=== PATIENT | male | born 1950 | race Caucasian/White ===

== ENCOUNTER → 2018-06-19 | Outpatient (CLI) | payer OTHER, MEDICARE | LOC: FIMAGING 09:36 | PROVIDERS: ATTEND Orthopaedic Surgery | DX: M16.12 Unilateral primary osteoarthritis, left hip (principal) ==

== ENCOUNTER 2018-07-12 08:48 | Inpatient (IN) | payer OTHER, MEDICARE ==
[~2018-07-12 08:48] MED LIST: POVIDONE-IODINE 20 ML in SODIUM CL IRRIG SOLUTION 500 ML IRR ONE; ROPIVACAINE 0.2% 80 MG, EPINEPHrine 0.2 MG, KETOROLAC TROMETHAMINE 30 MG in SYRINGE 0 ML IU ONE; TRANEXAMIC ACID 1,000 MG in NS 100 ML IV ONE
[2018-07-12] MEDS ORDERED: FAMOTIDINE 20 MG TAB PO ONE (09:01)
[2018-07-12] MEDS ORDERED: ceFAZolin 2 GM/DEXTROSE 100 ML IV ONE (09:01)
[2018-07-12] MEDS ORDERED: DEXAMETHASONE 4 MG/ML VIAL IVP ONE (09:01)
[2018-07-12] MEDS ORDERED: ACETAMINOPHEN 325 MG TAB PO ONE (09:01)
[2018-07-12] MEDS ORDERED: LR 1,000 ML IV ONE (09:02)
--- NOTE | 2018-07-12 09:14 | PDHPUP ---
History & Physical Update H&P update statement: This history and physical update is based on an assessment of the patient which was completed after admission or registration (within 24 hours), but prior to the surgery/procedure. H&P update: H&P reviewed & patient examined, no change in patient's condition since H&P completed
[2018-07-12] MEDS ORDERED: MIDAZOLAM 2 MG/2 ML VIAL IVP ONE (10:06)
--- NOTE | 2018-07-12 10:06 | PDANEPAE ---
ANE History of Present Illness For left total hip ANE Past Medical History - Cardiovascular History Hx Hypertension: Yes Hx Arrhythmias: No Hx Chest Pain: No Hx Coronary Artery / Peripheral Vascular Disease: No Hx CHF / Valvular Disease: No Hx Palpitations: No - Pulmonary History Hx COPD: No Hx Asthma/Reactive Airway Disease: No Hx Recent Upper Respiratory Infection: No Hx Oxygen in Use at Home: No Hx Sleep Apnea: No Sleep Apnea Screening Result - Last Documented: Positive Pulmonary History Comment: RENATA triggers only - Neurologic History Hx Cerebrovascular Accident: No Hx Seizures: No Hx Dementia: No - Endocrine History Hx Diabetes: No - Renal History Hx Renal Disorders: No - Liver History Hx Hepatic Disorders: No - Neurological & Psychiatric Hx Hx Neurological and Psychiatric Disorders: Yes Neurological / Psychiatric History Comment: anxiety - Cancer History Hx Cancer: Yes 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 wears glasses. has bump on inside lower right jaw below back tooth - is using triamcinolone paste from dentist - Chronic Pain History Chronic Pain: Yes (left hip) - Surgical History Prior Surgeries: 4 hernia repairs. deviated septum repair. hammer toe surgery ANE Review of Systems Review of Systems: - Exercise capacity METS (RN): 4 METS ANE Patient History - Allergies Allergies/Adverse Reactions: No Known Allergies Allergy (Verified 06/29/18 11:44) - Home Medications Home medications: home medication list seen and reviewed Home Medications: Aspirin [Aspirin 81mg (*)] 81 mg PO DAILY 06/28/18 [Last Taken 07/04/18] Atorvastatin Calcium [Lipitor 40 mg (*)] 40 mg PO DAILY 06/28/18 [Last Taken ] Docusate Sodium [Colace 100 MG (*)] 100 mg PO DAILY 06/28/18 [Last Taken ] Escitalopram Oxalate [Lexapro] 10 mg PO DAILY 06/28/18 [Last Taken 07/11/18] Lisinopril [Zestril 40 mg (*)] 40 mg PO HS 06/28/18 [Last Taken 07/11/18] Meloxicam [Mobic 15 mg] 15 mg PO DAILY 06/28/18 [Last Taken 07/04/18] Multivitamins [Multivitamin (*)] 1 each PO DAILY 06/28/18 [Last Taken 07/04/18] [place]-3 Fatty Acids [Fish Oil 1000 mg (*)] 2,000 mg PO DAILY 06/28/18 [Last Taken 07/04/18] RX: Herbals/Supplements -Info Only 1 ea PO DAILY 06/28/18 [Last Taken 07/04/18] RX: Omeprazole 20 mg PO DAILY 06/28/18 [Last Taken 07/11/18] RX: Triamcinolone Acetonide 1 alba DT DAILY 06/28/18 [Last Taken 07/04/18] Zolpidem Tartrate [Ambien 5MG (*)] 10 mg PO HS 07/03/18 [Last Taken 07/11/18] - NPO status NPO Status: no food or drink >8 hours NPO Since - Liquids (Date): 07/12/18 NPO Since - Liquids (Time): 06:30 NPO Since - Solids (Date): 07/11/18 NPO Since - Solids (Time): 19:00 - Anes Hx Anes Hx: no prior problems (No prior RA) - Smoking Hx Smoking Status: Former smoker - Family Anes Hx Family Hx Anesthesia Complications: none ANE Labs/Vital Signs - Vital Signs Blood Pressure: 147/93 Heart Rate: 78 Respiratory Rate: 15 O2 Sat (%): 95 Height: 180.34 cm Weight: 90.718 kg ANE Physical Exam - Airway Neck exam: FROM Mallampati Score: Class 2 Mouth exam: normal dental/mouth exam - Pulmonary Pulmonary: no respiratory distress - Cardiovascular Cardiovascular: regular rate and rhythym - ASA Status ASA Status: II ANE Anesthesia Plan Anesthesia Plan: MAC, spinal
[2018-07-12] MEDS ORDERED: PROPOFOL/EMULSION 500 MG/50 ML BOTTLE IV ONE ×2 (10:16→11:56)
[2018-07-12] MEDS ORDERED: LIDOCAINE 2% 5 ML SDV ONE (10:17)
[2018-07-12] MEDS ORDERED: BUPIVACAINE/EPI 0.5% 30 ML SDV ONE (10:18)
[2018-07-12] MEDS ORDERED: BUPIVACAINE/DEXTROSE 7.5MG/ML 2 ML SPINAL AMP SP ONE (10:18)
[2018-07-12] MEDS ORDERED: HYDROmorphONE/DILAUDID 2 MG/ML INJ IVP PRN (12:52)
[2018-07-12] MEDS ORDERED: fentaNYL 100 MCG/2 ML INJ IVP PRN (12:52)
[2018-07-12] MEDS ORDERED: ONDANSETRON 4 MG/2 ML VIAL IVP PRN ×2 (12:52→13:26)
[2018-07-12] MEDS ORDERED: NALOXONE HCL 0.4 MG/ML INJ IVP PRN (12:52)
--- NOTE | 2018-07-12 13:17 | POSTANESTH ---
Post Anesthetic Evaluation Cardiovascular Status: Similar to Pre-Op Cond Respiratory Status: Similar to Pre-op Cond. Level of Consciousness/Mental Status: Alert and Oriented Pain Control: Adequate, Prn Tx Ordered Nausea/Vomiting Control: Adequate, Prn Tx Ordered Complications Possibly Related to Anesthesia: None Noted
[2018-07-12] MEDS ORDERED: TEMAZEPAM 15 MG CAP PO PRN (13:26)
[2018-07-12] MEDS ORDERED: PROMETHAZINE HCL 25 MG SUPPR PR PRN (13:26)
[2018-07-12] MEDS ORDERED: diphenhydrAMINE 25 MG CAP PO PRN (13:26)
[2018-07-12] MEDS ORDERED: DIPHENOXYLATE/ATROPINE LOMOTIL 1 TAB PO PRN (13:26)
[2018-07-12] MEDS ORDERED: ONDANSETRON DISINTEGRATING 4 MG TAB PO PRN (13:26)
[2018-07-12] MEDS ORDERED: PROMETHAZINE HCL 25 MG/ML INJ IVP PRN (13:26)
[2018-07-12] MEDS ORDERED: POLYETHYLENE GLYCOL 3350 17 GM PKT PO PRN (13:26)
[2018-07-12] MEDS ORDERED: MAGNESIUM HYDROXIDE 30 ML UDCUP PO PRN (13:26)
[2018-07-12] MEDS ORDERED: BISACODYL 10 MG SUPP PR PRN (13:26)
[2018-07-12] MEDS ORDERED: METOCLOPRAMIDE 10 MG/2 ML VIAL IVP PRN (13:26)
[2018-07-12] MEDS ORDERED: LACTULOSE 20 GM/30 ML UDCUP PO PRN (13:26)
[2018-07-12] MEDS ORDERED: CYCLOBENZAPRINE 10 MG TAB PO PRN (13:26)
--- NOTE | 2018-07-12 13:26 | POSTOPPROG ---
Post Op Note Date of Operation: 07/12/18 Surgeon: Selvin Pizano Metalsmith: BRIA Crawford Anesthesiologist: MD Renate Anesthesia: IV Sedation, Spinal Pre-op Diagnosis: L hip OA Post-op Diagnosis: Same Procedure: L anterior DELIA with VIVIAN Inf/Abcess present in the surg proc area at time of surgery?: No EBL: 100-500 (300) Drains: Hemovac
[2018-07-12] MEDS ORDERED: LR 1,000 ML IV SCH (13:30)
--- NOTE | 2018-07-12 14:33 | GOP ---
DATE OF OPERATION: 07/12/2018 SURGEON: Selvin Pizano MD [facility] [facility]: Zachary Crawford, JOSE ALBERTOA, LSA, kennel assistant was required for the procedure due to complexity of the case, and the patient's condition for positioning, prepping, draping, retraction, and closure. ANESTHESIA: Spinal and IV sedation. PREOPERATIVE DIAGNOSIS: Left hip osteoarthritis. POSTOPERATIVE DIAGNOSIS: Left hip osteoarthritis. PROCEDURE PERFORMED: Left anterior approach hip replacement with MAKOplasty robotic guidance fluoros copic supervision, greater than 1 hour. FINDINGS: SPECIMENS: One femoral head. ESTIMATED BLOOD LOSS: 300 cc. INDICATIONS: Patient has severe hip osteoarthritis that failed to improve with conservative measures and significantly affecting activities of daily living including walking. Patient elected to procee d with an anterior approach hip replacement using MAKOplasty robotic guidance. After extensive discu ssion of all possible approaches as well as risks, benefits, pros, cons, expected recovery and progno sis. Patient verbalized understanding the risks, benefits, procedure and signed the informed consent prior to the procedure. DESCRIPTION OF PROCEDURE: DRAINS: Hemovac x1. COMPLICATIONS: None. IMPLANTS: Trident 2 hemispherical acetabular shell, size 56 with a +0 polyethylene liner; Accolade 2 , size 6 stem, 127 degree offset; 36 mm +5 head. OPERATIVE PROCEDURE: The patient was seen in the holding area. Operative consent and extremity was signed. Patient was taken to the operating room. After smooth induction of spinal anesthesia and se dation, the patient was placed in the supine position on the stress fracture table. The hip and cont ralateral iliac crest were prepped and draped in usual sterile fashion. Operative site was confirmed by signature. Operative time-out performed. Allergies reviewed. Antibiotics and TSA were administ ered. Three pins were placed in the contralateral iliac crest and pelvic array was fixed. It was well visu alized by the robot. Desired incision for the anterior portion of the hip was infiltrated with 0.25% Marcaine with epinephrine. A skin incision was made, made with a 10 blade and carried through the s ubcutaneous tissue to identify the TFL fascia. This was incised in line with the incision and the TF L was retracted laterally. The lateral femoral circumflex vessels were coagulated with Aquamantys. The TFL fascia was incised. The vastus lateralis was clearly exposed. Pericapsular fat was excised tissue. A T-shaped capsulotomy was performed. The capsule was preserved for later closure. The fem oral checkpoint was fixed into the anterior greater trochanter of the femur. Express registration wa s completed. The femoral neck was cut and then performed based on pre-templating, calculations and i maging. The femoral head was excised with a corkscrew. The acetabulum was exposed in standard fashi on. The labrum and pulvinar soft tissue were excised sharply. The pelvic checkpoint was placed in A IIS. Acetabular registration was performed using the robot. Reaming was then performed using the ro bot to the desired size. Cup was impacted into place with robotic guidance system. Good fixation wa s achieved. The cup was irrigated and dried, and the liner was impacted into place achieving good lo cking within the cup. The femur was then exposed in standard fashion. The femur was broached to the desired size. Trial neck and head were attached, and the hip was relocated. The length and offset were confirmed using the robot. Position of all components was confirmed at this point, fluoroscopic ally. The foot was freed from the table and stability was confirmed at 45 degrees in maximal flexio n, 30 degrees of internal rotation. Posterior back table externally rotated 90 degrees, extended don e to the floor. Stability was confirmed anteriorly. The hip was then dislocated and the femoral trial components were removed. The stem was impacted in to place. The trunnion was cleaned and dried and the head was impacted down onto the trunnion. The wound was copiously irrigated including the cup with pulse lavage, and the hip was once again relocat ed. Cuff placement was confirmed with fluoroscopy. All checkpoints and the femoral array screw were removed. The pelvic array was also removed. The wound was copiously irrigated with sterile solutio n. Dilute Betadine solution was irrigated into the wound and allowed to soak for 3 minutes before be ing irrigated out. Joint cocktail was injected into the soft tissue. Capsule was repaired with #1 Vi cryl sutures. The direct head of the rectus femoris was also repaired with #1 Vicryl sutures. A kori in was placed exiting distally and laterally from the TFL. The wound was then closed in layers with 0 Quill in a TFL fashion. Deep subcutaneous fat, 3-0 Versalok in the dermis. The wound was then remy ssed with sterile dressing and the patient was safely awakened, taken to recovery room in stable cond ition. All critical portions of procedure performed by myself, Dr. Pizano. This operative note was cr eated by myself, and was immediately available for emergency cross-coverage at all times. /[id number]/MODL
--- NOTE | 2018-07-12 16:58 | PDMN ---
Medical Necessity Medical necessity: [facility] IP only surgery; cpt 87537 L DELIA
[2018-07-12] MEDS: ceFAZolin 2 GM/DEXTROSE 100 ML IV SCH (17:32)
[2018-07-12] MEDS: ACETAMINOPHEN 325 MG TAB PO SCH ×2 (17:32→23:00)
[2018-07-12] MEDS: ASPIRIN 81 MG CHEWABLE TAB PO SCH (19:57)
[2018-07-12] MEDS: FAMOTIDINE 20 MG TAB PO SCH (19:57)
[2018-07-12] MEDS: SENNOSIDES/DOCUSATE SODIUM TAB PO SCH (19:57)
[2018-07-12] MEDS: oxyCODONE IR 5 MG TAB PO PRN ×2 (19:59→22:54)
[2018-07-12] MEDS ORDERED: LISINOPRIL 40 MG TAB PO SCH (21:00)
[2018-07-13] MEDS: ceFAZolin 2 GM/DEXTROSE 100 ML IV SCH (01:51)
[2018-07-13] MEDS: oxyCODONE IR 5 MG TAB PO PRN ×3 (01:56→08:41)
[2018-07-13] MEDS: ACETAMINOPHEN 325 MG TAB PO SCH (04:54)
--- NOTE | 2018-07-13 06:37 | SOAPPROG ---
SOAP Progress Note Assessment/Plan: Assessment: Postop day 1 status post left anterior approach total hip arthroplasty Plan: Weight bear as tolerated with assistance, PT/OT DVT prophylaxis: SCDs Bong hose and aspirin 81 mg twice daily x3 weeks Wean narcotics as tolerated Incentive spirometry 10 times per hour Disposition: Home today after physical therapy 07/13/18 06:34 Subjective: No acute events. Pain well controlled. Has urinated had bowel movement passed gas and ambulated. Denies fevers chills nausea vomiting chest pain shortness of breath. Objective: Vital Signs Temp Pulse Resp BP Pulse Ox 36.6 C 78 16 143/84 H 94 07/13/18 04:00 07/13/18 04:00 07/13/18 04:00 07/13/18 04:00 07/13/18 04:00 Laboratory Results 07/13/18 04:37 07/12/18 07/13/18 07/14/18 05:59 05:59 05:59 Intake Total 1811 Output Total 650 Balance 1161 Awake alert oriented x3 No acute distress Easy nonlabored breathing Hip: Dressing clean dry intact no erythema drainage or signs of infection Minimal swelling and ecchymosis Drain discontinued Thigh and calf compartments soft compressible, no calf pain Sensation intact to light touch from L3-S1 Motor intact EHL FHL tibialis anterior gastrocsoleus Palpable DP PT pulses - Time Spent With Patient Time Spent With Patient: 10 - Pending Discharge Pending Discharge Within 24 Hours: Yes Pending Discharge Date: 07/13/18 Pending Discharge Time: 11:00 ICD10 Worksheet Patient Problems: Problems Problem Status Onset Osteoarthritis of left hip Acute
--- NOTE | 2018-07-13 06:41 | PDIAF ---
- Diagnosis Code Status: Full Code - Medication Management Discharge Medications: Medications to Continue on Transfer RX: Atorvastatin Calcium [Lipitor 40 mg (*)] 40 mg PO DAILY 06/28/18 [Last Taken 07/11/18] RX: Docusate Sodium [Colace 100 MG (*)] 100 mg PO DAILY 06/28/18 [Last Taken ] RX: Escitalopram Oxalate [Lexapro 10 MG] 10 mg PO DAILY 06/28/18 [Last Taken ] RX: Lisinopril [Zestril 40 mg (*)] 40 mg PO HS 06/28/18 [Last Taken 07/11/18] RX: Multivitamins [Multivitamin (*)] 1 each PO DAILY 06/28/18 [Last Taken ] RX: Omeprazole 20 mg PO DAILY 06/28/18 [Last Taken 07/11/18] RX: Triamcinolone Acetonide 1 alba DT DAILY 06/28/18 [Last Taken 07/04/18] RX: Zolpidem Tartrate [Ambien 5MG (*)] 10 mg PO HS 07/03/18 [Last Taken 07/11/18 ] RX: Aspirin [Aspirin 81mg (*)] 81 mg PO BID #42 tab.chew 07/13/18 [Last Taken Unknown] RX: celeCOXIB [Celebrex (*)] 200 mg PO DAILY #21 cap 07/13/18 [Last Taken Unknown] Discharge Medications: Refer to the Discharge Home Medication list for PRN reason. - Orders Services needed: Physical Therapy, Occupational Therapy Isolation Type: None Diet Recommendation: no restrictions on diet Diet Texture: Regular Texture Diet Wound Care Instructions: see handout Activity/Weight Bearing Restrictions: WBAT see handout Additional Instructions: WBAT, see handout - Follow Up Care Current Providers and Referrals: REYNOLD POST [Primary Care Provider] -
[2018-07-13] MEDS: SENNOSIDES/DOCUSATE SODIUM TAB PO SCH (08:41)
[2018-07-13] MEDS: FAMOTIDINE 20 MG TAB PO SCH (08:42)
[2018-07-13] MEDS: ASPIRIN 81 MG CHEWABLE TAB PO SCH (08:43)
[2018-07-13] MEDS ORDERED: ATORVASTATIN CALCIUM 40 MG TAB PO SCH (09:00)
[2018-07-13] MEDS ORDERED: MULTIVITAMINS 1 EACH TAB PO SCH (09:00)
[2018-07-13] MEDS ORDERED: ESCITALOPRAM OXALATE 10 MG TAB PO SCH (09:00)
[2018-07-13 09:38] VITALS: BP 155/79
--- NOTE | 2018-07-13 11:20 | ASMTLACE ---
BRODIEE Length of stay for Answers: 2 days current admission Acuity / Level of Answers: Yes Care: Did the patient have an inpatient admission? Comorbidities - select Answers: Opioid dependence all that apply / Chronic pain Other Notes: HTN; GERD # of Emergency department Answers: 0 visits in the last 6 months Social determinants Answers: Mental health diagnosis (anxiety, depression, pers onality disorders, etc.) Score: 13 Date Signed: 07/13/2018 11:19 AM Electronically Signed By:FRANKI Robledo
--- NOTE | 2018-07-13 11:21 | ASMTCMCOM ---
CM Note CM Note Notes: Pt had planned OA of hip. PT rec home/outpatient. Pt resides with spouse. Pt does want H[facility], chooses [facility]. Orders to be obtained via [employer]. Pt address/phone verified. Date Signed: 07/13/2018 11:20 AM Electronically Signed By:FRANKI Robledo
--- NOTE | 2018-07-13 12:28 | ASDISCHSUM ---
Discharge Information Plan Status:Home with Home Health Medically Cleared to Leave: Discharge Date:07/13/2018 10:58 AM CM D/C Disposition: ADT D/C Disposition:Home, Routine, Self-Care Projected Discharge Date:07/13/2018 11:00 AM Transportation at D/C: Discharge Delay Reason: Follow-Up Date:07/13/2018 11:00 AM Discharge Slot: Final Diagnosis: Placement Information Referral Type:*Home Health Care Services Referral ID:[id number] Provider Name:[facility] Address 1:[address] [place] [address] Address 2: City:[place] Selection Factors: State:[place] Patient Contact Information Contact Name:LEONARDA Relationship: Address:[address] City:[place] Alternate Phone: State/Zip Code:[place] [address] Email: Financial Information Financial Class:Medicare Primary Plan Desc:MEDICARE INPATIENT Primary Plan Number:[id number] Secondary Plan Desc:JOSESITOP/MDR SUPPLEMENT Secondary Plan Number:[id number] Assessment Information LACE LACE Length of stay for Answers: 2 days current admission Acuity / Level of Answers: Yes Care: Did the patient have an inpatient admission? Comorbidities - select Answers: Opioid dependence all that apply / Chronic pain Other Notes: HTN; GERD # of Emergency department Answers: 0 visits in the last 6 months Social determinants Answers: Mental health diagnosis (anxiety, depression, pers onality disorders, etc.) Score: 13 Date Signed: 07/13/2018 11:19 AM Electronically Signed By:FRANKI Robledo [facility] CM Progress Note CM Note CM Note Notes: Pt had planned OA of hip. PT rec home/outpatient. Pt resides with spouse. Pt does want [facility], chooses [facility]. Orders to be obtained via [employer]. Pt address/phone verified. Date Signed: 07/13/2018 11:20 AM Electronically Signed By:FRANKI Robledo Intervention Information
== END 2018-07-13 10:58 | disposition home or self-care (01) | DRG 470 ==
LOC: F3N 08:48
PROVIDERS: ADMIT Orthopaedic Surgery; ATTEND Orthopaedic Surgery
PROC: 8E0Y0CZ Robotic Assisted Procedure of Lower Extremity, Open Approach (ICD-10-PCS; principal; 2018-07-12 10:30)
PROC: 0SRB04Z Replacement of Left Hip Joint with Ceramic on Polyethylene Synthetic Substitute, Open Approach (ICD-10-PCS; principal; 2018-07-12 10:30)
DX: M16.12 Unilateral primary osteoarthritis, left hip (principal); I10 Essential (primary) hypertension; G47.33 Obstructive sleep apnea (adult) (pediatric); F41.9 Anxiety disorder, unspecified; K21.9 Gastro-esophageal reflux disease without esophagitis
CPT/HCPCS: 97116-GP; 97161-GP; 97165-GO; G8978-GP-CK; G8979-GP-CI; G8980-GP-CI; G8987-GO-CI; G8988-GO-CI; G8989-GO-CI; J0171; J0690; J1100; J1885; J2250; J2704; J2795